=== PATIENT | female | born 1950 | race African-American/Black ===

== ENCOUNTER 2018-07-04 13:14 | Emergency (ER) | payer MEDICARE ==
[~2018-07-04] VITALS: Ht 165.1 cm; Wt 73.0 kg
[2018-07-04] MEDS ORDERED: HYDROCODONE/ACETAMINOPHEN 5/325MG TABLET PO ONE (20:45)
[2018-07-04 21:13] VITALS: BP 137/79
== END 2018-07-04 21:13 | disposition home or self-care (01) ==
LOC: ER 13:14
DX: M54.40 Lumbago with sciatica, unspecified side (principal); G89.29 Other chronic pain; I10 Essential (primary) hypertension; E78.00 Pure hypercholesterolemia, unspecified; Z88.5 Allergy status to narcotic agent; Z91.041 Radiographic dye allergy status; Z90.49 Acquired absence of other specified parts of digestive tract; Z90.710 Acquired absence of both cervix and uterus
CPT/HCPCS: 72131; 93005; 99284